=== PATIENT | female | born 1960 | race Caucasian/White ===

== ENCOUNTER 2018-03-29 17:39 | Inpatient (IN) | payer BC, OTHER ==
[~2018-03-29] VITALS: Ht 170.2 cm; Wt 56.8 kg
[2018-03-29 18:57] LABS: BASOPHILS # (AUTO) 0.1 X10'3 (0-0.2); BASOPHILS % (AUTO) 0.7 % (0-1); EOSINOPHILS # (AUTO) 0.2 X10'3 (0-0.9); EOSINOPHILS % (AUTO) 2.8 % (0-6); HEMATOCRIT 33.8 % (35.0-45.0); HEMOGLOBIN 11.6 g/dl (12.0-16.0); LYMPHOCYTES # (AUTO) 1.1 X10'3 (1.1-4.8); LYMPHOCYTES % (AUTO) 13.9 % (21-51); MEAN CORPUSCULAR HEMOGLOBIN 39.1 PG (27.0-31.0); MEAN CORPUSCULAR HGB CONC 34.4 % (33.0-36.5); MEAN CORPUSCULAR VOLUME 113.6 FL (78-98); MEAN PLATELET VOLUME 7.1 FL (7.4-10.4); MONOCYTES % (AUTO) 12.1 % (2-12); NEUTROPHILS # (AUTO) 5.6 X10'3 (1.8-7.7); NEUTROPHILS % (AUTO) 70.5 % (42-75); PLATELET COUNT 143 X10'3 (140-440); RED BLOOD COUNT 2.98 X10'6 (4.20-5.60); RED CELL DISTRIBUTION WIDTH 14.7 % (11.5-14.5); WHITE BLOOD COUNT 7.9 X10'3 (4.5-11.0)
[2018-03-29 19:08] LABS: INR 1.4 INR; PROTHROMBIN TIME 14.3 SECONDS (9.0-12.0)
[2018-03-29 19:13] LABS: ALANINE AMINOTRANSFERASE 31 U/L (12-78); ALBUMIN 2.1 G/DL (3.4-5.0); ALKALINE PHOSPHATASE 162 IU/L (46-116); ANION GAP 7 (8-16); ASPARTATE AMINO TRANSFERASE 85 U/L (10-37); BILIRUBIN,TOTAL 5.2 MG/DL (0.1-1.0); BLOOD UREA NITROGEN 11 MG/DL (7-18); BUN/CREATININE RATIO 17.2 (6.6-38.0); CALCIUM 8.4 MG/DL (8.5-10.1); CHLORIDE 98 MMOL/L (99-107); CREATININE 0.64 MG/DL (0.40-0.90); GLUCOSE 94 MG/DL (70-104); LIPASE 60 U/L (73-393); POTASSIUM 3.3 MMOL/L (3.5-5.1); SODIUM 132 MMOL/L (135-145); TOTAL CARBON DIOXIDE 27.3 MMOL/L (24-32); eGFR > 90 ML/MIN
[2018-03-29 19:19] LABS: ALBUMIN/GLOBULIN RATIO 0.5 (1.1-1.5); TOTAL PROTEIN 6.2 G/DL (6.4-8.2)
[2018-03-29] MEDS ORDERED: temazepam 15mg capsule PO PRN (21:00)
[2018-03-29 21:21] LABS: URINE HCG NEGATIVE (NEG)
[2018-03-29 21:24] LABS: CLARITY,URINE CLEAR (Clear)
[2018-03-29 21:29] LABS: COLOR,URINE ORANGE (Yellow); UA COLLECTION TYPE CLN CATCH MIDSTREAM
[2018-03-29] MEDS ORDERED: lactulose 20gm/30ml cup PO ONE (21:40)
[2018-03-29] MEDS ORDERED: thiamine 100mg/ml 2ml inj. IM ONE (21:40)
[2018-03-29 21:47] LABS: BACTERIA,URINE FEW /HPF (Neg); MUCUS STRANDS MANY /LPF (Neg); RBC,URINE 0-2 /HPF (0-2); SQUAMOUS EPITHELIAL CELL,UR MODERATE /LPF (FEW); WBC,URINE 0-4 /HPF (0-4)
[2018-03-29 21:58] LABS: PLATELET ESTIMATE NORMAL
[2018-03-29 22:00] LABS: POLYCHROMASIA FEW
[2018-03-29 22:01] LABS: TARGET CELLS 1+
[2018-03-29] MEDS ORDERED: iohexol 300mg/ml 100ml inj. ONE (22:34)
[2018-03-29] MEDS ORDERED: mag hydrox/Alum hydrox/simeth 30ml oral suspension PO PRN ×5 (23:00→23:15)
[2018-03-29] MEDS ORDERED: ondansetron/PF 4mg/2ml inj IV PRN ×3 (23:00→23:10)
[2018-03-29] MEDS ORDERED: magnesium hydroxide 30ml (MOM) UD suspension PO PRN ×4 (23:00→23:15)
[2018-03-29] MEDS ORDERED: acetaminophen 325mg tablet PO PRN ×5 (23:00→23:15)
[2018-03-29] MEDS ORDERED: ALPR-623 PO (23:13)
[2018-03-29] MEDS ORDERED: AMIT-189 PO (23:13)
[2018-03-29] MEDS ORDERED: metoclopramide 5 mg/ml inj IV PRN (23:15)
[2018-03-29] MEDS ORDERED: acetaminophen 650mg rectal suppository RC PRN (23:15)
[2018-03-29] MEDS ORDERED: folic acid inj. 2 MG, thiamine inj. 100 MG, MVI, adult No.4 with vit. K 10 ML in dextro... IV SCH ×8 (23:15→23:25)
[2018-03-29] MEDS ORDERED: cyclobenzaprine 10mg tablet PO PRN (23:15)
[2018-03-29] MEDS ORDERED: diphenhydrAMINE 50 mg/ml inj IV PRN (23:15)
[2018-03-29] MEDS ORDERED: bisacodyl 10mg suppository rectal RC PRN (23:15)
[2018-03-29] MEDS ORDERED: morphine 2 MG/ML inj. syringe IV PRN ×2 (23:15)
[2018-03-29] MEDS ORDERED: HYDROcodone/acetaminophen 5mg/325mg tablet PO PRN (23:15)
[2018-03-29] MEDS ORDERED: diphenhydrAMINE 25mg capsule PO PRN (23:15)
[2018-03-29] MEDS: furosemide 10 MG/1 ML 10ml inj IV SCH (23:15)
[2018-03-29] MEDS ORDERED: dextrose 50%-water 50ml dispensing syringe IV PRN (23:15)
[2018-03-29] MEDS ORDERED: haloperidol lactate 5mg/ml inj IM PRN (23:15)
[2018-03-29] MEDS ORDERED: loperamide 2mg capsule PO PRN (23:15)
[2018-03-29] MEDS ORDERED: cloNIDine 0.1 MG/24 HOUR patch (7 day patch) TD SCH (23:15)
[2018-03-29] MEDS ORDERED: dicyclomine 10 MG capsule PO PRN (23:15)
[2018-03-29] MEDS: K, MAG and/or Phos replacement - Verify level? MC SCH (23:15)
[2018-03-29 23:17] LABS: ACETAMINOPHEN < 2.0 UG/ML (10-30)
[2018-03-29] MEDS: LORazepam 1 MG tablet PO PRN (23:35)
[2018-03-29] MEDS: potassium Cl 20 mEq SR tablet PO PRN (23:35)
[2018-03-29] MEDS: normal saline 1000ml 1,000 ML IV SCH (23:35)
[2018-03-29 23:55] LABS: URINE AMPHETAMINE SCREEN NEGATIVE (Neg); URINE BARBITUATE SCREEN NEGATIVE (Neg); URINE BENZODIAZEPINES SCREEN POSITIVE (Neg); URINE CANNABINOID SCREEN NEGATIVE (Neg); URINE COCAINE SCREEN NEGATIVE (Neg); URINE METHADONE SCREEN NEGATIVE (Neg); URINE OPIATE SCREEN NEGATIVE (Neg); URINE PHENCYCLIDINE SCREEN NEGATIVE (Neg)
[2018-03-30 00:11] LABS: MAGNESIUM 1.9 MG/DL (1.5-2.4)
[2018-03-30 00:23] LABS: PHOSPHORUS 3.1 MG/DL (2.3-4.5)
[2018-03-30] MEDS ORDERED: folic acid inj. 2 MG, thiamine inj. 100 MG, MVI, adult No.4 with vit. K 10 ML in dextro... IV ONE ×4 (01:20)
[2018-03-30] MEDS: lactulose 20gm/30ml cup PO SCH ×5 (02:51→20:00)
[2018-03-30] MEDS: LORazepam 1 MG tablet PO PRN (02:51)
[2018-03-30 05:50] VITALS: BP 107/68
[2018-03-30 06:33] LABS: BASOPHILS % (AUTO) 0.3 % (0-1); EOSINOPHILS # (AUTO) 0.2 X10'3 (0-0.9); EOSINOPHILS % (AUTO) 2.6 % (0-6); HEMATOCRIT 35.1 % (35.0-45.0); HEMOGLOBIN 12.1 g/dl (12.0-16.0); LYMPHOCYTES % (AUTO) 12.1 % (21-51); MEAN CORPUSCULAR HEMOGLOBIN 39.5 PG (27.0-31.0); MEAN CORPUSCULAR HGB CONC 34.4 % (33.0-36.5); MEAN CORPUSCULAR VOLUME 114.8 FL (78-98); MEAN PLATELET VOLUME 7.4 FL (7.4-10.4); MONOCYTES # (AUTO) 0.9 X10'3 (0-0.9); MONOCYTES % (AUTO) 11.1 % (2-12); NEUTROPHILS % (AUTO) 73.9 % (42-75); PLATELET COUNT 148 X10'3 (140-440); RED BLOOD COUNT 3.05 X10'6 (4.20-5.60); RED CELL DISTRIBUTION WIDTH 15.5 % (11.5-14.5); WHITE BLOOD COUNT 8.1 X10'3 (4.5-11.0)
[2018-03-30 07:05] LABS: ALANINE AMINOTRANSFERASE 30 U/L (12-78); ALBUMIN 2.2 G/DL (3.4-5.0); ALKALINE PHOSPHATASE 172 IU/L (46-116); AMYLASE 13 U/L (25-115); ANION GAP 9 (8-16); ASPARTATE AMINO TRANSFERASE 91 U/L (10-37); BILIRUBIN,TOTAL 5.8 MG/DL (0.1-1.0); BLOOD UREA NITROGEN 9 MG/DL (7-18); BUN/CREATININE RATIO 11.5 (6.6-38.0); CALCIUM 8.1 MG/DL (8.5-10.1); CHLORIDE 97 MMOL/L (99-107); CREATININE 0.78 MG/DL (0.40-0.90); GLUCOSE 125 MG/DL (70-104); SODIUM 132 MMOL/L (135-145); TOTAL CARBON DIOXIDE 25.6 MMOL/L (24-32); eGFR 76 ML/MIN
[2018-03-30 07:07] LABS: ALBUMIN/GLOBULIN RATIO 0.5 (1.1-1.5); TOTAL PROTEIN 6.4 G/DL (6.4-8.2)
[2018-03-30 07:39] LABS: PLATELET ESTIMATE NORMAL
[2018-03-30 07:40] LABS: ANISOCYTOSIS 1+
[2018-03-30] MEDS: K, MAG and/or Phos replacement - Verify level? MC SCH (08:00)
[2018-03-30] MEDS: furosemide 10 MG/1 ML 10ml inj IV SCH (08:00)
[2018-03-30] MEDS: nicotine 21mg patch - 24 hr TD SCH (09:10)
[2018-03-30] MEDS: docusate sod 100mg capsule PO SCH ×2 (09:10→20:00)
[2018-03-30] MEDS: pantoprazole 40mg Tablet.DR PO SCH (09:10)
[2018-03-30] MEDS ORDERED: potassium Cl 40MEQ/NS 500ml 500 ML IV PRN (09:30)
[2018-03-30] MEDS: potassium Cl 40MEQ/NS 500ml 500 ML IV PRN ×2 (10:24→16:47)
[2018-03-30 11:00] VITALS: BP 96/57
[2018-03-30] MEDS ORDERED: lactulose 20gm/30ml cup RC ONE ×2 (16:20→16:30)
[2018-03-30 18:30] VITALS: BP 99/48
[2018-03-30] MEDS: rifaximin 550mg tablet PO SCH (20:00)
[2018-03-30] MEDS: amitryptiline 50mg tablet PO SCH (20:52)
[2018-03-31] VITALS (8 sets, daily range): BP systolic 101–123; BP diastolic 43–80
[2018-03-31] MEDS: lactulose 20gm/30ml cup PO SCH ×6 (03:47→20:56)
[2018-03-31 04:30] LABS: BASOPHILS % (AUTO) 0.3 % (0-1); EOSINOPHILS # (AUTO) 0.2 X10'3 (0-0.9); EOSINOPHILS % (AUTO) 2.5 % (0-6); HEMATOCRIT 32.7 % (35.0-45.0); HEMOGLOBIN 11.3 g/dl (12.0-16.0); LYMPHOCYTES # (AUTO) 0.9 X10'3 (1.1-4.8); MEAN CORPUSCULAR HEMOGLOBIN 39.5 PG (27.0-31.0); MEAN CORPUSCULAR HGB CONC 34.4 % (33.0-36.5); MEAN CORPUSCULAR VOLUME 114.7 FL (78-98); MEAN PLATELET VOLUME 7.3 FL (7.4-10.4); MONOCYTES # (AUTO) 0.9 X10'3 (0-0.9); MONOCYTES % (AUTO) 11.8 % (2-12); NEUTROPHILS # (AUTO) 5.8 X10'3 (1.8-7.7); NEUTROPHILS % (AUTO) 73.4 % (42-75); PLATELET COUNT 135 X10'3 (140-440); RED BLOOD COUNT 2.85 X10'6 (4.20-5.60); RED CELL DISTRIBUTION WIDTH 15.6 % (11.5-14.5); WHITE BLOOD COUNT 7.9 X10'3 (4.5-11.0)
[2018-03-31 04:40] LABS: INR 1.4 INR; PROTHROMBIN TIME 13.9 SECONDS (9.0-12.0)
[2018-03-31 04:43] LABS: ALANINE AMINOTRANSFERASE 22 U/L (12-78); ALBUMIN 2.1 G/DL (3.4-5.0); ALKALINE PHOSPHATASE 161 IU/L (46-116); AMYLASE 12 U/L (25-115); ASPARTATE AMINO TRANSFERASE 85 U/L (10-37); BILIRUBIN,TOTAL 5.2 MG/DL (0.1-1.0); BLOOD UREA NITROGEN 12 MG/DL (7-18); BUN/CREATININE RATIO 17.6 (6.6-38.0); CALCIUM 8.1 MG/DL (8.5-10.1); CHLORIDE 105 MMOL/L (99-107); CREATININE 0.68 MG/DL (0.40-0.90); GLUCOSE 92 MG/DL (70-104); MAGNESIUM 2.1 MG/DL (1.5-2.4); TOTAL CARBON DIOXIDE 24.9 MMOL/L (24-32); eGFR 90 ML/MIN
[2018-03-31 05:11] LABS: ALBUMIN/GLOBULIN RATIO 0.5 (1.1-1.5); POTASSIUM 4.8 MMOL/L (3.5-5.1); TOTAL PROTEIN 6.5 G/DL (6.4-8.2)
[2018-03-31 05:12] LABS: ANION GAP 7 (8-16); SODIUM 137 MMOL/L (135-145)
[2018-03-31] MEDS: furosemide 10 MG/1 ML 10ml inj IV SCH (07:25)
[2018-03-31] MEDS: nicotine 21mg patch - 24 hr TD SCH (07:35)
[2018-03-31] MEDS: pantoprazole 40mg Tablet.DR PO SCH ×2 (07:35→20:56)
[2018-03-31] MEDS: folic acid inj. 2 MG, thiamine inj. 100 MG, MVI, adult No.4 with vit. K 10 ML in dextro... IV SCH ×4 (07:35)
[2018-03-31] MEDS: lactobacillus rhamnosus 10,000 MMU CELLS/CAPSULE PO SCH ×2 (07:45→20:56)
[2018-03-31] MEDS: docusate sod 100mg capsule PO SCH ×2 (07:49→20:00)
[2018-03-31] MEDS: K, MAG and/or Phos replacement - Verify level? MC SCH (08:00)
[2018-03-31] MEDS ORDERED: lactulose 20gm/30ml cup RC SCH ×2 (08:00)
[2018-03-31] MEDS ORDERED: MIDAZolam 5mg/5ml vial ONE (08:41)
[2018-03-31] MEDS ORDERED: fentaNYL/PF 50MCG/1 ML 2ML syringe ONE (08:41)
[2018-03-31] MEDS ORDERED: LIDOcaine Viscous 15ml cup ONE (08:41)
[2018-03-31] MEDS: rifaximin 550mg tablet PO SCH ×2 (12:57→20:57)
[2018-03-31] MEDS: LORazepam 1 MG tablet PO PRN (13:04)
[2018-03-31] MEDS: HYDROcodone/acetaminophen 10/325mg tab PO PRN (15:30)
[2018-03-31] MEDS: amitryptiline 50mg tablet PO SCH (20:57)
[2018-03-31] MEDS: normal saline 1000ml 1,000 ML IV SCH (23:11)
[2018-04-01] VITALS: BP 106/60
[2018-04-01] MEDS: lactulose 20gm/30ml cup PO SCH ×7 (00:03→22:57)
[2018-04-01] MEDS: HYDROcodone/acetaminophen 10/325mg tab PO PRN ×2 (03:28→09:13)
[2018-04-01 05:15] LABS: INR 1.4 INR; PROTHROMBIN TIME 14.3 SECONDS (9.0-12.0)
[2018-04-01 05:23] LABS: BASOPHILS % (AUTO) 0.4 % (0-1); EOSINOPHILS # (AUTO) 0.2 X10'3 (0-0.9); EOSINOPHILS % (AUTO) 3.5 % (0-6); HEMATOCRIT 33.9 % (35.0-45.0); HEMOGLOBIN 11.4 g/dl (12.0-16.0); LYMPHOCYTES # (AUTO) 0.9 X10'3 (1.1-4.8); LYMPHOCYTES % (AUTO) 14.5 % (21-51); MEAN CORPUSCULAR HEMOGLOBIN 39.2 PG (27.0-31.0); MEAN CORPUSCULAR HGB CONC 33.8 % (33.0-36.5); MEAN PLATELET VOLUME 7.7 FL (7.4-10.4); MONOCYTES # (AUTO) 0.8 X10'3 (0-0.9); MONOCYTES % (AUTO) 13.3 % (2-12); NEUTROPHILS # (AUTO) 4.2 X10'3 (1.8-7.7); NEUTROPHILS % (AUTO) 68.3 % (42-75); PLATELET COUNT 126 X10'3 (140-440); RED BLOOD COUNT 2.92 X10'6 (4.20-5.60); RED CELL DISTRIBUTION WIDTH 15.6 % (11.5-14.5); WHITE BLOOD COUNT 6.2 X10'3 (4.5-11.0)
[2018-04-01 05:25] LABS: ALANINE AMINOTRANSFERASE 25 U/L (12-78); ALBUMIN 2.2 G/DL (3.4-5.0); ALKALINE PHOSPHATASE 161 IU/L (46-116); AMYLASE 12 U/L (25-115); ASPARTATE AMINO TRANSFERASE 92 U/L (10-37); BILIRUBIN,TOTAL 4.9 MG/DL (0.1-1.0); BLOOD UREA NITROGEN 12 MG/DL (7-18); BUN/CREATININE RATIO 16.4 (6.6-38.0); CALCIUM 8.2 MG/DL (8.5-10.1); CHLORIDE 106 MMOL/L (99-107); CREATININE 0.73 MG/DL (0.40-0.90); GLUCOSE 112 MG/DL (70-104); TOTAL CARBON DIOXIDE 26.7 MMOL/L (24-32); eGFR 82 ML/MIN
[2018-04-01 05:43] LABS: ALBUMIN/GLOBULIN RATIO 0.5 (1.1-1.5); PHOSPHORUS 3.2 MG/DL (2.3-4.5); POTASSIUM 3.4 MMOL/L (3.5-5.1); TOTAL PROTEIN 6.3 G/DL (6.4-8.2)
[2018-04-01 05:45] LABS: ANION GAP 5 (8-16); SODIUM 138 MMOL/L (135-145)
[2018-04-01 07:00] VITALS: BP 81/40
[2018-04-01] MEDS: K, MAG and/or Phos replacement - Verify level? MC SCH (08:00)
[2018-04-01] MEDS: furosemide 10 MG/1 ML 10ml inj IV SCH (08:00)
[2018-04-01] MEDS: docusate sod 100mg capsule PO SCH ×2 (09:12→20:15)
[2018-04-01] MEDS: potassium Cl 20 mEq SR tablet PO PRN ×2 (09:12→16:21)
[2018-04-01] MEDS: folic acid inj. 2 MG, thiamine inj. 100 MG, MVI, adult No.4 with vit. K 10 ML in dextro... IV SCH ×4 (09:12)
[2018-04-01] MEDS: rifaximin 550mg tablet PO SCH ×2 (09:12→20:15)
[2018-04-01] MEDS: lactobacillus rhamnosus 10,000 MMU CELLS/CAPSULE PO SCH ×2 (09:12→20:15)
[2018-04-01] MEDS: pantoprazole 40mg Tablet.DR PO SCH ×2 (09:12→20:15)
[2018-04-01] MEDS: nicotine 21mg patch - 24 hr TD SCH (09:13)
[2018-04-01 12:00] VITALS: BP 95/46
[2018-04-01 13:32] LABS: HIV ANTIBODY 1&2 RAPID NON-REACTIVE (Neg)
[2018-04-01] MEDS: normal saline 1000ml 1,000 ML IV SCH (16:17)
[2018-04-01 20:00] VITALS: BP 101/55
[2018-04-01] MEDS: amitryptiline 50mg tablet PO SCH (20:15)
[2018-04-01 23:00] VITALS: BP 108/55
[2018-04-02] MEDS: normal saline 500ml IV soln 500 ML IV SCH (01:55)
[2018-04-02] MEDS: lactulose 20gm/30ml cup PO SCH ×5 (03:58→23:30)
[2018-04-02 05:43] LABS: BASOPHILS % (AUTO) 0.1 % (0-1); EOSINOPHILS # (AUTO) 0.2 X10'3 (0-0.9); EOSINOPHILS % (AUTO) 3.4 % (0-6); HEMATOCRIT 33.4 % (35.0-45.0); HEMOGLOBIN 11.2 g/dl (12.0-16.0); LYMPHOCYTES # (AUTO) 0.9 X10'3 (1.1-4.8); LYMPHOCYTES % (AUTO) 15.2 % (21-51); MEAN CORPUSCULAR HEMOGLOBIN 38.9 PG (27.0-31.0); MEAN CORPUSCULAR HGB CONC 33.5 % (33.0-36.5); MEAN PLATELET VOLUME 7.2 FL (7.4-10.4); MONOCYTES # (AUTO) 0.7 X10'3 (0-0.9); MONOCYTES % (AUTO) 12.5 % (2-12); NEUTROPHILS % (AUTO) 68.8 % (42-75); PLATELET COUNT 126 X10'3 (140-440); RED BLOOD COUNT 2.88 X10'6 (4.20-5.60); RED CELL DISTRIBUTION WIDTH 15.6 % (11.5-14.5); WHITE BLOOD COUNT 5.9 X10'3 (4.5-11.0)
[2018-04-02 05:53] LABS: INR 1.4 INR; PROTHROMBIN TIME 14.6 SECONDS (9.0-12.0)
[2018-04-02 06:07] LABS: ALANINE AMINOTRANSFERASE 35 U/L (12-78); ALKALINE PHOSPHATASE 159 IU/L (46-116); ANION GAP 8 (8-16); ASPARTATE AMINO TRANSFERASE 79 U/L (10-37); BILIRUBIN,TOTAL 4.2 MG/DL (0.1-1.0); BLOOD UREA NITROGEN 10 MG/DL (7-18); BUN/CREATININE RATIO 15.2 (6.6-38.0); CALCIUM 7.9 MG/DL (8.5-10.1); CHLORIDE 107 MMOL/L (99-107); CREATININE 0.66 MG/DL (0.40-0.90); GLUCOSE 106 MG/DL (70-104); MAGNESIUM 1.8 MG/DL (1.5-2.4); POTASSIUM 3.7 MMOL/L (3.5-5.1); SODIUM 141 MMOL/L (135-145); TOTAL CARBON DIOXIDE 25.8 MMOL/L (24-32); eGFR > 90 ML/MIN
[2018-04-02 06:29] LABS: ALBUMIN/GLOBULIN RATIO 0.5 (1.1-1.5); PHOSPHORUS 2.9 MG/DL (2.3-4.5); TOTAL PROTEIN 6.2 G/DL (6.4-8.2)
[2018-04-02 06:31] LABS: PLATELET ESTIMATE DECREASED
[2018-04-02 06:32] LABS: ANISOCYTOSIS 1+
[2018-04-02] MEDS: lactobacillus rhamnosus 10,000 MMU CELLS/CAPSULE PO SCH ×2 (07:15→20:40)
[2018-04-02] MEDS: ALPRAZolam 0.25mg tablet PO PRN (07:15)
[2018-04-02] MEDS: pantoprazole 40mg Tablet.DR PO SCH ×2 (07:15→20:39)
[2018-04-02] MEDS: rifaximin 550mg tablet PO SCH ×2 (07:16→20:39)
[2018-04-02] MEDS: multivitamins, therapeutics tablet PO SCH (07:16)
[2018-04-02] MEDS: thiamine 100mg tablet PO SCH (07:16)
[2018-04-02] MEDS: nicotine 21mg patch - 24 hr TD SCH (07:16)
[2018-04-02] MEDS: furosemide 10 MG/1 ML 10ml inj IV SCH (07:17)
[2018-04-02] MEDS: K, MAG and/or Phos replacement - Verify level? MC SCH (07:18)
[2018-04-02] MEDS: folic acid 1mg tablet PO SCH ×2 (07:19→20:39)
[2018-04-02] MEDS: docusate sod 100mg capsule PO SCH ×2 (07:19→20:00)
[2018-04-02] MEDS ORDERED: LIDOcaine 1%/PF 5ML 10 MG/ML VIAL ONE (10:28)
[2018-04-02 10:43] VITALS: BP 112/73
[2018-04-02 11:15] VITALS: BP 93/45
[2018-04-02 11:29] VITALS: BP 93/45
[2018-04-02 12:13] LABS: GLUCOSE,BODY FLUID 121 MG/DL; LDH,BODY FLUID 52 U/L
[2018-04-02] MEDS ORDERED: LORazepam 2 mg/ml vial IV ONE (12:30)
[2018-04-02 12:33] LABS: ALBUMIN,BODY FLUID < 0.6 G/DL; TOTAL PROTEIN,BODY FLUID < 2.0 G/DL
[2018-04-02 13:18] LABS: BF MESOTHELIAL CELLS MODERATE; BF RBC COUNT 513 /CU MM; BF WBC COUNT 104 /CU MM (0-1000); BFAPPEAR HAZY; BFCOLOR YELLOW; BFVOLUME 53 ML; LYMPHOCYTES,BODY FLUID 27 %; MONOCYTES,BODY FLUID 71 %; NEUTROPHILS,BODY FLUID 2 %
[2018-04-02] MEDS ORDERED: lactulose 20gm/30ml cup PO SCH (14:00)
[2018-04-02 20:00] VITALS: BP 105/56
[2018-04-02] MEDS: amitryptiline 50mg tablet PO SCH (20:40)
[2018-04-02] MEDS: LORazepam 0.5 MG tablet PO PRN (23:30)
[2018-04-03] VITALS: BP 104/50
[2018-04-03] MEDS: normal saline 500ml IV soln 500 ML IV SCH (02:03)
[2018-04-03 06:52] LABS: BASOPHILS % (AUTO) 0.5 % (0-1); EOSINOPHILS # (AUTO) 0.2 X10'3 (0-0.9); EOSINOPHILS % (AUTO) 3.8 % (0-6); HEMATOCRIT 35.2 % (35.0-45.0); HEMOGLOBIN 11.9 g/dl (12.0-16.0); LYMPHOCYTES # (AUTO) 0.9 X10'3 (1.1-4.8); MEAN CORPUSCULAR HEMOGLOBIN 39.5 PG (27.0-31.0); MEAN CORPUSCULAR HGB CONC 33.8 % (33.0-36.5); MEAN CORPUSCULAR VOLUME 116.7 FL (78-98); MEAN PLATELET VOLUME 7.4 FL (7.4-10.4); MONOCYTES # (AUTO) 0.7 X10'3 (0-0.9); MONOCYTES % (AUTO) 14.2 % (2-12); NEUTROPHILS # (AUTO) 3.1 X10'3 (1.8-7.7); NEUTROPHILS % (AUTO) 62.5 % (42-75); PLATELET COUNT 116 X10'3 (140-440); RED BLOOD COUNT 3.01 X10'6 (4.20-5.60); RED CELL DISTRIBUTION WIDTH 15.7 % (11.5-14.5); WHITE BLOOD COUNT 4.9 X10'3 (4.5-11.0)
[2018-04-03 07:00] LABS: INR 1.4 INR; PROTHROMBIN TIME 14.7 SECONDS (9.0-12.0)
[2018-04-03 07:04] LABS: ALANINE AMINOTRANSFERASE 25 U/L (12-78); ALKALINE PHOSPHATASE 157 IU/L (46-116); ANION GAP 9 (8-16); ASPARTATE AMINO TRANSFERASE 75 U/L (10-37); BILIRUBIN,TOTAL 4.1 MG/DL (0.1-1.0); BLOOD UREA NITROGEN 9 MG/DL (7-18); BUN/CREATININE RATIO 14.1 (6.6-38.0); CALCIUM 8.1 MG/DL (8.5-10.1); CHLORIDE 107 MMOL/L (99-107); CREATININE 0.64 MG/DL (0.40-0.90); GLUCOSE 99 MG/DL (70-104); MAGNESIUM 1.9 MG/DL (1.5-2.4); PLATELET ESTIMATE DECREASED; POTASSIUM 3.4 MMOL/L (3.5-5.1); SODIUM 141 MMOL/L (135-145); TOTAL CARBON DIOXIDE 25.4 MMOL/L (24-32); eGFR > 90 ML/MIN
[2018-04-03 07:05] LABS: ALBUMIN/GLOBULIN RATIO 0.5 (1.1-1.5); ANISOCYTOSIS 1+; TOTAL PROTEIN 6.2 G/DL (6.4-8.2)
[2018-04-03 08:00] VITALS: BP 100/46
[2018-04-03] MEDS: K, MAG and/or Phos replacement - Verify level? MC SCH (08:00)
[2018-04-03] MEDS: lactobacillus rhamnosus 10,000 MMU CELLS/CAPSULE PO SCH ×2 (08:47→19:40)
[2018-04-03] MEDS: rifaximin 550mg tablet PO SCH ×2 (08:47→19:40)
[2018-04-03] MEDS: multivitamins, therapeutics tablet PO SCH (08:51)
[2018-04-03] MEDS: thiamine 100mg tablet PO SCH (08:51)
[2018-04-03] MEDS: pantoprazole 40mg Tablet.DR PO SCH ×2 (08:51→19:40)
[2018-04-03] MEDS: docusate sod 100mg capsule PO SCH ×2 (08:51→19:40)
[2018-04-03] MEDS: lactulose 20gm/30ml cup PO SCH ×2 (08:52→19:40)
[2018-04-03] MEDS: folic acid 1mg tablet PO SCH ×2 (08:52→19:40)
[2018-04-03] MEDS: nicotine 21mg patch - 24 hr TD SCH (08:54)
[2018-04-03] MEDS: furosemide 10 MG/1 ML 10ml inj IV SCH (08:54)
[2018-04-03] MEDS: LORazepam 0.5 MG tablet PO PRN (09:31)
[2018-04-03] MEDS: potassium Cl 20 mEq SR tablet PO PRN ×3 (09:35→19:53)
[2018-04-03] MEDS ORDERED: LORazepam 2 mg/ml vial IV ONE (10:40)
[2018-04-03 11:19] LABS: HBSAG SCREEN Negative (Negative); HEP A AB, IGM Negative (Negative); HEP B CORE AB, IGM Negative (Negative); HEPATITIS C ANTIBODY <0.1 s/co ratio (0.0-0.9)
[2018-04-03] MEDS ORDERED: gadopentetate dimeglumine 7.5 MMOL/15 ML syringe ONE ×2 (15:16)
[2018-04-03] MEDS ORDERED: iohexol 300mg/ml 100ml inj. ONE (17:36)
[2018-04-03 20:00] VITALS: BP 105/58
[2018-04-03] MEDS ORDERED: diatr meglu/diatrizoate 30ml oral sol.-(3 dose) bottle PO SCH (21:00)
[2018-04-03] MEDS: amitryptiline 50mg tablet PO SCH (21:22)
[2018-04-03 23:00] VITALS: BP 95/50
[2018-04-04] MEDS: lactulose 20gm/30ml cup PO SCH ×5 (01:31→23:53)
[2018-04-04] MEDS: normal saline 500ml IV soln 500 ML IV SCH (05:08)
[2018-04-04 05:53] LABS: INR 1.4 INR; PROTHROMBIN TIME 14.2 SECONDS (9.0-12.0)
[2018-04-04 05:56] LABS: BASOPHILS # (AUTO) 0.1 X10'3 (0-0.2); EOSINOPHILS # (AUTO) 0.3 X10'3 (0-0.9); EOSINOPHILS % (AUTO) 4.5 % (0-6); HEMOGLOBIN 12.3 g/dl (12.0-16.0); LYMPHOCYTES # (AUTO) 0.8 X10'3 (1.1-4.8); MEAN CORPUSCULAR HEMOGLOBIN 39.4 PG (27.0-31.0); MEAN CORPUSCULAR HGB CONC 34.2 % (33.0-36.5); MEAN CORPUSCULAR VOLUME 115.3 FL (78-98); MEAN PLATELET VOLUME 7.7 FL (7.4-10.4); MONOCYTES # (AUTO) 0.8 X10'3 (0-0.9); MONOCYTES % (AUTO) 13.7 % (2-12); NEUTROPHILS # (AUTO) 3.8 X10'3 (1.8-7.7); NEUTROPHILS % (AUTO) 66.8 % (42-75); PLATELET COUNT 110 X10'3 (140-440); RED BLOOD COUNT 3.12 X10'6 (4.20-5.60); WHITE BLOOD COUNT 5.8 X10'3 (4.5-11.0)
[2018-04-04 06:13] LABS: ALANINE AMINOTRANSFERASE 28 U/L (12-78); ALBUMIN 2.1 G/DL (3.4-5.0); ALKALINE PHOSPHATASE 163 IU/L (46-116); ANION GAP 11 (8-16); ASPARTATE AMINO TRANSFERASE 79 U/L (10-37); BILIRUBIN,TOTAL 3.8 MG/DL (0.1-1.0); BLOOD UREA NITROGEN 8 MG/DL (7-18); BUN/CREATININE RATIO 10.7 (6.6-38.0); CALCIUM 8.2 MG/DL (8.5-10.1); CHLORIDE 107 MMOL/L (99-107); CREATININE 0.75 MG/DL (0.40-0.90); GLUCOSE 116 MG/DL (70-104); MAGNESIUM 1.9 MG/DL (1.5-2.4); POTASSIUM 3.8 MMOL/L (3.5-5.1); SODIUM 141 MMOL/L (135-145); TOTAL CARBON DIOXIDE 23.4 MMOL/L (24-32); eGFR 80 ML/MIN
[2018-04-04 06:15] LABS: ALBUMIN/GLOBULIN RATIO 0.5 (1.1-1.5); TOTAL PROTEIN 6.4 G/DL (6.4-8.2)
[2018-04-04] MEDS: lactobacillus rhamnosus 10,000 MMU CELLS/CAPSULE PO SCH ×2 (07:26→20:40)
[2018-04-04] MEDS: multivitamins, therapeutics tablet PO SCH (07:26)
[2018-04-04] MEDS: folic acid 1mg tablet PO SCH ×2 (07:26→20:41)
[2018-04-04] MEDS: pantoprazole 40mg Tablet.DR PO SCH ×2 (07:26→20:40)
[2018-04-04] MEDS: rifaximin 550mg tablet PO SCH ×2 (07:26→20:43)
[2018-04-04] MEDS: docusate sod 100mg capsule PO SCH ×2 (07:27→20:40)
[2018-04-04] MEDS: nicotine 21mg patch - 24 hr TD SCH (07:27)
[2018-04-04] MEDS: thiamine 100mg tablet PO SCH (07:27)
[2018-04-04] MEDS: furosemide 10 MG/1 ML 10ml inj IV SCH (07:27)
[2018-04-04 07:29] LABS: PLATELET ESTIMATE DECREASED
[2018-04-04] MEDS: K, MAG and/or Phos replacement - Verify level? MC SCH (08:00)
[2018-04-04 08:35] VITALS: BP 96/43
[2018-04-04 12:00] VITALS: BP 95/45
[2018-04-04] MEDS: ALPRAZolam 0.25mg tablet PO PRN (17:10)
[2018-04-04 19:00] VITALS: BP 120/58
[2018-04-04] MEDS: amitryptiline 50mg tablet PO SCH (20:41)
[2018-04-04] MEDS: ondansetron/PF 4mg/2ml inj IV PRN (21:29)
[2018-04-04] MEDS: LORazepam 0.5 MG tablet PO PRN (23:55)
[2018-04-05] VITALS: BP 125/55
[2018-04-05] MEDS: lactulose 20gm/30ml cup PO SCH ×5 (03:44→20:25)
[2018-04-05] MEDS: normal saline 500ml IV soln 500 ML IV SCH (04:55)
[2018-04-05 05:10] LABS: BASOPHILS % (AUTO) 0.3 % (0-1); EOSINOPHILS # (AUTO) 0.2 X10'3 (0-0.9); EOSINOPHILS % (AUTO) 4.1 % (0-6); HEMATOCRIT 34.3 % (35.0-45.0); HEMOGLOBIN 11.7 g/dl (12.0-16.0); LYMPHOCYTES # (AUTO) 0.9 X10'3 (1.1-4.8); LYMPHOCYTES % (AUTO) 15.6 % (21-51); MEAN CORPUSCULAR HEMOGLOBIN 39.5 PG (27.0-31.0); MEAN CORPUSCULAR HGB CONC 34.1 % (33.0-36.5); MEAN CORPUSCULAR VOLUME 115.9 FL (78-98); MONOCYTES # (AUTO) 0.8 X10'3 (0-0.9); MONOCYTES % (AUTO) 14.3 % (2-12); NEUTROPHILS # (AUTO) 3.8 X10'3 (1.8-7.7); NEUTROPHILS % (AUTO) 65.7 % (42-75); PLATELET COUNT 114 X10'3 (140-440); RED BLOOD COUNT 2.96 X10'6 (4.20-5.60); RED CELL DISTRIBUTION WIDTH 15.1 % (11.5-14.5); WHITE BLOOD COUNT 5.8 X10'3 (4.5-11.0)
[2018-04-05 05:41] LABS: ALANINE AMINOTRANSFERASE 31 U/L (12-78); ALBUMIN 2.1 G/DL (3.4-5.0); ALKALINE PHOSPHATASE 157 IU/L (46-116); ANION GAP 9 (8-16); ASPARTATE AMINO TRANSFERASE 73 U/L (10-37); BILIRUBIN,TOTAL 3.7 MG/DL (0.1-1.0); BLOOD UREA NITROGEN 7 MG/DL (7-18); BUN/CREATININE RATIO 9.7 (6.6-38.0); CALCIUM 7.9 MG/DL (8.5-10.1); CHLORIDE 106 MMOL/L (99-107); CREATININE 0.72 MG/DL (0.40-0.90); GLUCOSE 110 MG/DL (70-104); MAGNESIUM 1.8 MG/DL (1.5-2.4); POTASSIUM 3.3 MMOL/L (3.5-5.1); SODIUM 140 MMOL/L (135-145); TOTAL CARBON DIOXIDE 24.8 MMOL/L (24-32); eGFR 84 ML/MIN
[2018-04-05 06:00] LABS: ALBUMIN/GLOBULIN RATIO 0.5 (1.1-1.5); PHOSPHORUS 3.3 MG/DL (2.3-4.5); TOTAL PROTEIN 6.2 G/DL (6.4-8.2)
[2018-04-05 06:47] LABS: ANISOCYTOSIS 1+; PLATELET ESTIMATE DECREASED
[2018-04-05 07:03] VITALS: BP 92/48
[2018-04-05] MEDS: furosemide 10 MG/1 ML 10ml inj IV SCH (08:00)
[2018-04-05] MEDS: docusate sod 100mg capsule PO SCH ×2 (08:00→20:00)
[2018-04-05] MEDS: potassium Cl 20 mEq SR tablet PO PRN ×3 (08:25→16:53)
[2018-04-05] MEDS: lactobacillus rhamnosus 10,000 MMU CELLS/CAPSULE PO SCH ×2 (08:25→20:26)
[2018-04-05] MEDS: rifaximin 550mg tablet PO SCH ×2 (08:25→20:26)
[2018-04-05] MEDS: folic acid 1mg tablet PO SCH ×2 (08:25→20:26)
[2018-04-05] MEDS: multivitamins, therapeutics tablet PO SCH (08:25)
[2018-04-05] MEDS: thiamine 100mg tablet PO SCH (08:25)
[2018-04-05] MEDS: pantoprazole 40mg Tablet.DR PO SCH ×2 (08:25→20:26)
[2018-04-05] MEDS: nicotine 21mg patch - 24 hr TD SCH (08:32)
[2018-04-05] MEDS: K, MAG and/or Phos replacement - Verify level? MC SCH (08:32)
[2018-04-05 11:00] VITALS: BP 124/68
[2018-04-05 13:07] VITALS: BP_SYST 101; BP_SYST 138; BP_DIAS 66; BP_DIAS 79
[2018-04-05] MEDS: HYDROcodone/acetaminophen 10/325mg tab PO PRN ×2 (14:22→20:26)
[2018-04-05 19:00] VITALS: BP 105/60
[2018-04-05] MEDS: amitryptiline 50mg tablet PO SCH (20:26)
[2018-04-05] MEDS: ondansetron/PF 4mg/2ml inj IV PRN (20:40)
[2018-04-06] VITALS: BP 111/57
[2018-04-06] MEDS: normal saline 500ml IV soln 500 ML IV SCH ×2 (05:55→12:51)
[2018-04-06 06:20] LABS: BASOPHILS % (AUTO) 0.6 % (0-1); EOSINOPHILS # (AUTO) 0.3 X10'3 (0-0.9); EOSINOPHILS % (AUTO) 5.1 % (0-6); HEMATOCRIT 35.6 % (35.0-45.0); HEMOGLOBIN 12.2 g/dl (12.0-16.0); LYMPHOCYTES # (AUTO) 0.8 X10'3 (1.1-4.8); LYMPHOCYTES % (AUTO) 15.1 % (21-51); MEAN CORPUSCULAR HEMOGLOBIN 39.4 PG (27.0-31.0); MEAN CORPUSCULAR HGB CONC 34.1 % (33.0-36.5); MEAN CORPUSCULAR VOLUME 115.4 FL (78-98); MEAN PLATELET VOLUME 8.1 FL (7.4-10.4); MONOCYTES # (AUTO) 0.8 X10'3 (0-0.9); MONOCYTES % (AUTO) 14.9 % (2-12); NEUTROPHILS # (AUTO) 3.5 X10'3 (1.8-7.7); NEUTROPHILS % (AUTO) 64.3 % (42-75); PLATELET COUNT 103 X10'3 (140-440); RED BLOOD COUNT 3.09 X10'6 (4.20-5.60); RED CELL DISTRIBUTION WIDTH 15.1 % (11.5-14.5); WHITE BLOOD COUNT 5.4 X10'3 (4.5-11.0)
[2018-04-06 07:15] VITALS: BP 94/45
[2018-04-06] MEDS: folic acid 1mg tablet PO SCH ×2 (07:40→20:43)
[2018-04-06] MEDS: pantoprazole 40mg Tablet.DR PO SCH ×2 (07:40→20:43)
[2018-04-06] MEDS: thiamine 100mg tablet PO SCH (07:40)
[2018-04-06] MEDS: rifaximin 550mg tablet PO SCH ×2 (07:40→20:42)
[2018-04-06] MEDS: lactobacillus rhamnosus 10,000 MMU CELLS/CAPSULE PO SCH ×2 (07:40→20:43)
[2018-04-06] MEDS: docusate sod 100mg capsule PO SCH ×2 (07:41→20:43)
[2018-04-06] MEDS: multivitamins, therapeutics tablet PO SCH (07:41)
[2018-04-06] MEDS: nicotine 21mg patch - 24 hr TD SCH (07:45)
[2018-04-06] MEDS: lactulose 20gm/30ml cup PO SCH ×4 (07:46→20:44)
[2018-04-06] MEDS: furosemide 10 MG/1 ML 10ml inj IV SCH (07:48)
[2018-04-06 07:58] LABS: INR 1.5 INR; PARTIAL THROMBOPLASTIN TIME 30 SECONDS (22-32); PROTHROMBIN TIME 15.3 SECONDS (9.0-12.0)
[2018-04-06] MEDS: K, MAG and/or Phos replacement - Verify level? MC SCH (08:00)
[2018-04-06 08:03] LABS: ALANINE AMINOTRANSFERASE 27 U/L (12-78); ALBUMIN/GLOBULIN RATIO 0.5 (1.1-1.5); ALKALINE PHOSPHATASE 151 IU/L (46-116); ANION GAP 9 (8-16); ASPARTATE AMINO TRANSFERASE 68 U/L (10-37); BILIRUBIN,TOTAL 3.4 MG/DL (0.1-1.0); BLOOD UREA NITROGEN 8 MG/DL (7-18); BUN/CREATININE RATIO 9.4 (6.6-38.0); CALCIUM 8.2 MG/DL (8.5-10.1); CHLORIDE 109 MMOL/L (99-107); CREATININE 0.85 MG/DL (0.40-0.90); GLUCOSE 105 MG/DL (70-104); MAGNESIUM 1.9 MG/DL (1.5-2.4); PHOSPHORUS 3.3 MG/DL (2.3-4.5); POTASSIUM 3.8 MMOL/L (3.5-5.1); SODIUM 142 MMOL/L (135-145); TOTAL CARBON DIOXIDE 23.7 MMOL/L (24-32); TOTAL PROTEIN 6.2 G/DL (6.4-8.2); eGFR 69 ML/MIN
[2018-04-06 09:33] LABS: PLATELET ESTIMATE DECREASED
[2018-04-06 11:00] VITALS: BP 108/59
[2018-04-06] MEDS: ALPRAZolam 0.25mg tablet PO PRN (12:51)
[2018-04-06] MEDS: HYDROcodone/acetaminophen 10/325mg tab PO PRN ×2 (12:52→23:26)
[2018-04-06 19:00] VITALS: BP 99/47
[2018-04-06] MEDS: amitryptiline 50mg tablet PO SCH (20:43)
[2018-04-07] VITALS: BP 87/52
[2018-04-07 04:00] VITALS: BP 92/52
[2018-04-07 07:04] VITALS: BP 94/44
[2018-04-07] MEDS: K, MAG and/or Phos replacement - Verify level? MC SCH (08:00)
[2018-04-07] MEDS: nicotine 21mg patch - 24 hr TD SCH (08:14)
[2018-04-07] MEDS: rifaximin 550mg tablet PO SCH ×2 (08:15→20:03)
[2018-04-07] MEDS: pantoprazole 40mg Tablet.DR PO SCH ×2 (08:15→20:03)
[2018-04-07] MEDS: furosemide 10 MG/1 ML 10ml inj IV SCH (08:15)
[2018-04-07] MEDS: folic acid 1mg tablet PO SCH ×2 (08:15→20:03)
[2018-04-07] MEDS: docusate sod 100mg capsule PO SCH ×2 (08:15→20:02)
[2018-04-07] MEDS: thiamine 100mg tablet PO SCH (08:15)
[2018-04-07] MEDS: lactobacillus rhamnosus 10,000 MMU CELLS/CAPSULE PO SCH ×2 (08:15→20:03)
[2018-04-07] MEDS: multivitamins, therapeutics tablet PO SCH (08:15)
[2018-04-07] MEDS: lactulose 20gm/30ml cup PO SCH ×4 (08:16→21:31)
[2018-04-07 10:02] LABS: BASOPHILS % (AUTO) 0.6 % (0-1); EOSINOPHILS # (AUTO) 0.2 X10'3 (0-0.9); EOSINOPHILS % (AUTO) 4.6 % (0-6); HEMATOCRIT 41.6 % (35.0-45.0); HEMOGLOBIN 13.8 g/dl (12.0-16.0); LYMPHOCYTES # (AUTO) 0.9 X10'3 (1.1-4.8); LYMPHOCYTES % (AUTO) 16.6 % (21-51); MEAN CORPUSCULAR HEMOGLOBIN 38.5 PG (27.0-31.0); MEAN CORPUSCULAR HGB CONC 33.1 % (33.0-36.5); MEAN CORPUSCULAR VOLUME 116.1 FL (78-98); MEAN PLATELET VOLUME 8.7 FL (7.4-10.4); MONOCYTES # (AUTO) 0.5 X10'3 (0-0.9); MONOCYTES % (AUTO) 10.2 % (2-12); NEUTROPHILS # (AUTO) 3.7 X10'3 (1.8-7.7); PLATELET COUNT 128 X10'3 (140-440); RED BLOOD COUNT 3.58 X10'6 (4.20-5.60); RED CELL DISTRIBUTION WIDTH 14.7 % (11.5-14.5); WHITE BLOOD COUNT 5.4 X10'3 (4.5-11.0)
[2018-04-07 10:15] LABS: ALANINE AMINOTRANSFERASE 34 U/L (12-78); ALBUMIN 2.3 G/DL (3.4-5.0); ALBUMIN/GLOBULIN RATIO 0.5 (1.1-1.5); ALKALINE PHOSPHATASE 185 IU/L (46-116); ANION GAP 10 (8-16); ASPARTATE AMINO TRANSFERASE 74 U/L (10-37); BILIRUBIN,TOTAL 3.4 MG/DL (0.1-1.0); BLOOD UREA NITROGEN 8 MG/DL (7-18); BUN/CREATININE RATIO 9.9 (6.6-38.0); CALCIUM 8.3 MG/DL (8.5-10.1); CHLORIDE 104 MMOL/L (99-107); CREATININE 0.81 MG/DL (0.40-0.90); GLUCOSE 124 MG/DL (70-104); MAGNESIUM 1.6 MG/DL (1.5-2.4); PHOSPHORUS 3.1 MG/DL (2.3-4.5); SODIUM 141 MMOL/L (135-145); TOTAL CARBON DIOXIDE 26.6 MMOL/L (24-32); TOTAL PROTEIN 7.1 G/DL (6.4-8.2); eGFR 73 ML/MIN
[2018-04-07 10:17] LABS: POTASSIUM 2.9 MMOL/L (3.5-5.1)
[2018-04-07 10:41] LABS: ANISOCYTOSIS FEW; PLATELET ESTIMATE DECREASED; ROULEAUX 1+
[2018-04-07] MEDS: potassium Cl 20 mEq SR tablet PO PRN ×3 (10:48→18:54)
[2018-04-07 11:58] VITALS: BP_SYST 114; BP_SYST 153; BP_DIAS 50
[2018-04-07] MEDS: ALPRAZolam 0.25mg tablet PO PRN (12:21)
[2018-04-07] MEDS: normal saline 500ml IV soln 500 ML IV SCH (12:25)
[2018-04-07] MEDS: potassium Cl 20 mEq SR tablet PO SCH (17:31)
[2018-04-07 19:00] VITALS: BP 104/53
[2018-04-07] MEDS: ondansetron/PF 4mg/2ml inj IV PRN (20:00)
[2018-04-07] MEDS ORDERED: furosemide 10 MG/1 ML 10ml inj IV SCH (20:00)
[2018-04-07] MEDS: HYDROcodone/acetaminophen 10/325mg tab PO PRN (20:04)
[2018-04-07] MEDS: amitryptiline 50mg tablet PO SCH (21:32)
[2018-04-08] VITALS: BP 100/54
[2018-04-08 05:34] LABS: HEMATOCRIT 38.3 % (35.0-45.0); HEMOGLOBIN 12.9 g/dl (12.0-16.0); MEAN CORPUSCULAR HEMOGLOBIN 38.7 PG (27.0-31.0); MEAN CORPUSCULAR HGB CONC 33.6 % (33.0-36.5); MEAN CORPUSCULAR VOLUME 115.1 FL (78-98); MEAN PLATELET VOLUME 8.5 FL (7.4-10.4); PLATELET COUNT 117 X10'3 (140-440); RED BLOOD COUNT 3.32 X10'6 (4.20-5.60); RED CELL DISTRIBUTION WIDTH 14.6 % (11.5-14.5); WHITE BLOOD COUNT 7.6 X10'3 (4.5-11.0)
[2018-04-08 05:42] LABS: ALANINE AMINOTRANSFERASE 34 U/L (12-78); ALBUMIN 2.3 G/DL (3.4-5.0); ALBUMIN/GLOBULIN RATIO 0.5 (1.1-1.5); ALKALINE PHOSPHATASE 185 IU/L (46-116); ANION GAP 13 (8-16); ASPARTATE AMINO TRANSFERASE 78 U/L (10-37); BILIRUBIN,TOTAL 3.2 MG/DL (0.1-1.0); BLOOD UREA NITROGEN 8 MG/DL (7-18); BUN/CREATININE RATIO 10.4 (6.6-38.0); CALCIUM 8.1 MG/DL (8.5-10.1); CHLORIDE 103 MMOL/L (99-107); CREATININE 0.77 MG/DL (0.40-0.90); GLUCOSE 103 MG/DL (70-104); MAGNESIUM 1.5 MG/DL (1.5-2.4); PHOSPHORUS 2.5 MG/DL (2.3-4.5); POTASSIUM 3.8 MMOL/L (3.5-5.1); SODIUM 138 MMOL/L (135-145); TOTAL CARBON DIOXIDE 22.4 MMOL/L (24-32); TOTAL PROTEIN 6.9 G/DL (6.4-8.2); eGFR 78 ML/MIN
[2018-04-08 07:00] VITALS: BP 100/46
[2018-04-08] MEDS: lactobacillus rhamnosus 10,000 MMU CELLS/CAPSULE PO SCH ×2 (08:00→20:13)
[2018-04-08] MEDS: pantoprazole 40mg Tablet.DR PO SCH ×2 (08:00→20:12)
[2018-04-08] MEDS: K, MAG and/or Phos replacement - Verify level? MC SCH (08:00)
[2018-04-08] MEDS: rifaximin 550mg tablet PO SCH ×2 (08:00→20:13)
[2018-04-08] MEDS: thiamine 100mg tablet PO SCH (08:01)
[2018-04-08] MEDS: multivitamins, therapeutics tablet PO SCH (08:01)
[2018-04-08] MEDS: docusate sod 100mg capsule PO SCH ×2 (08:01→20:13)
[2018-04-08] MEDS: furosemide 20 MG/2 ML vial IV SCH ×2 (08:01→20:14)
[2018-04-08] MEDS: nicotine 21mg patch - 24 hr TD SCH (08:01)
[2018-04-08] MEDS: folic acid 1mg tablet PO SCH ×2 (08:01→20:13)
[2018-04-08] MEDS: lactulose 20gm/30ml cup PO SCH ×3 (08:02→20:46)
[2018-04-08 08:03] LABS: ANISOCYTOSIS FEW; PLATELET ESTIMATE DECREASED; TOTAL CELLS COUNTED 100
[2018-04-08] MEDS: potassium Cl 20 mEq SR tablet PO SCH ×2 (08:03→17:33)
[2018-04-08 19:00] VITALS: BP 117/60
[2018-04-08] MEDS: propranolol 10mg tablet PO SCH (20:12)
[2018-04-08] MEDS ORDERED: amitriptyline 25mg tablet PO SCH (21:00)
[2018-04-08] MEDS: ALPRAZolam 0.25mg tablet PO PRN (22:46)
[2018-04-09] VITALS: BP 96/55
[2018-04-09 06:44] LABS: ALANINE AMINOTRANSFERASE 26 U/L (12-78); ALBUMIN 1.8 G/DL (3.4-5.0); ALBUMIN/GLOBULIN RATIO 0.4 (1.1-1.5); ALKALINE PHOSPHATASE 152 IU/L (46-116); ANION GAP 9 (8-16); ASPARTATE AMINO TRANSFERASE 67 U/L (10-37); BILIRUBIN,TOTAL 3.1 MG/DL (0.1-1.0); BLOOD UREA NITROGEN 8 MG/DL (7-18); BUN/CREATININE RATIO 12.1 (6.6-38.0); CALCIUM 8.2 MG/DL (8.5-10.1); CHLORIDE 102 MMOL/L (99-107); CREATININE 0.66 MG/DL (0.40-0.90); GLUCOSE 81 MG/DL (70-104); MAGNESIUM 1.3 MG/DL (1.5-2.4); PHOSPHORUS 3.2 MG/DL (2.3-4.5); SODIUM 136 MMOL/L (135-145); TOTAL CARBON DIOXIDE 25.2 MMOL/L (24-32); TOTAL PROTEIN 5.9 G/DL (6.4-8.2); eGFR > 90 ML/MIN
[2018-04-09 06:48] LABS: BASOPHILS % (AUTO) 0.4 % (0-1); EOSINOPHILS # (AUTO) 0.3 X10'3 (0-0.9); EOSINOPHILS % (AUTO) 4.5 % (0-6); HEMATOCRIT 35.5 % (35.0-45.0); HEMOGLOBIN 11.9 g/dl (12.0-16.0); LYMPHOCYTES # (AUTO) 1.2 X10'3 (1.1-4.8); MEAN CORPUSCULAR HEMOGLOBIN 38.6 PG (27.0-31.0); MEAN CORPUSCULAR HGB CONC 33.6 % (33.0-36.5); MEAN CORPUSCULAR VOLUME 114.8 FL (78-98); MEAN PLATELET VOLUME 8.9 FL (7.4-10.4); MONOCYTES # (AUTO) 0.8 X10'3 (0-0.9); MONOCYTES % (AUTO) 12.7 % (2-12); NEUTROPHILS # (AUTO) 4.1 X10'3 (1.8-7.7); NEUTROPHILS % (AUTO) 64.4 % (42-75); PLATELET COUNT 113 X10'3 (140-440); RED CELL DISTRIBUTION WIDTH 14.3 % (11.5-14.5); WHITE BLOOD COUNT 6.4 X10'3 (4.5-11.0)
[2018-04-09 07:00] VITALS: BP 88/34
[2018-04-09 07:10] LABS: PLATELET ESTIMATE DECREASED
[2018-04-09] MEDS: furosemide 20 MG/2 ML vial IV SCH (07:52)
[2018-04-09] MEDS: propranolol 10mg tablet PO SCH (07:53)
[2018-04-09] MEDS: docusate sod 100mg capsule PO SCH (07:54)
[2018-04-09] MEDS: K, MAG and/or Phos replacement - Verify level? MC SCH (07:54)
[2018-04-09] MEDS: folic acid 1mg tablet PO SCH (08:18)
[2018-04-09] MEDS: lactobacillus rhamnosus 10,000 MMU CELLS/CAPSULE PO SCH (08:18)
[2018-04-09] MEDS: rifaximin 550mg tablet PO SCH (08:19)
[2018-04-09] MEDS: potassium Cl 20 mEq SR tablet PO SCH (08:19)
[2018-04-09] MEDS: pantoprazole 40mg Tablet.DR PO SCH (08:19)
[2018-04-09] MEDS: thiamine 100mg tablet PO SCH (08:19)
[2018-04-09] MEDS: multivitamins, therapeutics tablet PO SCH (08:20)
[2018-04-09] MEDS: lactulose 20gm/30ml cup PO SCH ×3 (08:20→12:28)
[2018-04-09] MEDS: nicotine 21mg patch - 24 hr TD SCH (08:22)
[2018-04-09] MEDS ORDERED: spironolactone 25 MG tablet PO SCH (08:30)
[2018-04-09 11:00] VITALS: BP 96/54
[2018-04-09] MEDS: ondansetron/PF 4mg/2ml inj IV PRN (12:19)
[2018-04-09] MEDS: ALPRAZolam 0.25mg tablet PO PRN (12:19)
[2018-04-09] MEDS ORDERED: SPIR25TA PO (16:54)
[2018-04-09] MEDS ORDERED: RIFA550T PO (16:54)
[2018-04-09] MEDS ORDERED: MULT-1179 PO (16:54)
[2018-04-09] MEDS ORDERED: PROP10TA10 PO (16:54)
[2018-04-09] MEDS ORDERED: LACT10SO32 PO (16:54)
[2018-04-10 08:18] LABS: CARCINOEMBRYONIC ANTIGEN 7.1 ng/mL (0.0-4.7)
== END 2018-04-09 17:00 | disposition home or self-care (01) | DRG 433 ==
LOC: ER 17:39 → ED HOLD 22:59 → SUR 3N 03-30 05:39
PROVIDERS: ADMIT Family Medicine; ATTEND Family Medicine
PROC: BW211ZZ Computerized Tomography (CT Scan) of Abdomen and Pelvis using Low Osmolar Contrast (ICD-10-PCS; principal; 2018-03-29)
PROC: 0DB58ZX Excision of Esophagus, Via Natural or Artificial Opening Endoscopic, Diagnostic (ICD-10-PCS; 2018-03-31)
PROC: 0W9G3ZZ Drainage of Peritoneal Cavity, Percutaneous Approach (ICD-10-PCS; 2018-04-02)
PROC: BW211ZZ Computerized Tomography (CT Scan) of Abdomen and Pelvis using Low Osmolar Contrast (ICD-10-PCS; 2018-04-03)
DX: K70.40 Alcoholic hepatic failure without coma (principal); S22.31XA Fracture of one rib, right side, initial encounter for closed fracture; D68.9 Coagulation defect, unspecified; E87.1 Hypo-osmolality and hyponatremia; K76.6 Portal hypertension; E87.6 Hypokalemia; F10.20 Alcohol dependence, uncomplicated; F17.210 Nicotine dependence, cigarettes, uncomplicated; K20.9 Esophagitis, unspecified; K31.9 Disease of stomach and duodenum, unspecified; D69.6 Thrombocytopenia, unspecified; K70.31 Alcoholic cirrhosis of liver with ascites; W18.39XA Other fall on same level, initial encounter; K76.0 Fatty (change of) liver, not elsewhere classified; M79.7 Fibromyalgia; R29.6 Repeated falls; S30.0XXA Contusion of lower back and pelvis, initial encounter; F41.9 Anxiety disorder, unspecified; Z88.0 Allergy status to penicillin; Z88.1 Allergy status to other antibiotic agents; Z91.030 Bee allergy status; Z90.49 Acquired absence of other specified parts of digestive tract; Y93.89 Activity, other specified; Y92.89 Other specified places as the place of occurrence of the external cause; Y99.8 Other external cause status; Z79.899 Other long term (current) drug therapy; Z71.41 Alcohol abuse counseling and surveillance of alcoholic; Z71.6 Tobacco abuse counseling
CPT/HCPCS: 36415; 43239; 49083; 74177; 74178; 74183; 80053; 80305; 80329; 81001; 81025; 82042; 82103; 82140; 82150; 82378; 82945; 82948; 83615; 83690; 83735; 83880; 83986; 84100; 84132; 84157; 84443; 84484; 85025; 85610; 85730; 86301; 86703; 86705; 86706; 86709; 86803; 87040; 87070; 87340; 89051; 96374; 97110; 97116; 97162; 97530; 99285; A4353; A4620; A9579; G0500; J1940; J2001; J2060; J2250; J2270; J2405; J3010; J3411; J3480; J3490; J7030; J7060; Q9967